=== PATIENT | male | born 2000 | race African-American/Black ===

== ENCOUNTER 2024-11-25 17:54 | Emergency (ER) | payer SELFPAY ==
--- NOTE | ~2024-11-25 | CT_ITS ---
EXAMINATION: CT brain wo con DATE: 11/25/2024 18:55 INDICATION: head injury . TECHNIQUE: Computed tomography (CT) of the head was performed without intravenous contrast. The mA wa s adjusted according to patient size. Iterative reconstruction technique was employed. The dose-lengt h product was 681.00 mGy-cm. COMPARISON: None. FINDINGS: No acute intracranial hemorrhage or extra-axial fluid collection. No hydrocephalus, mass, or herniation. No acute ischemic infarct. Right parietal scalp hematoma. Unremarkable dural venous sinus attenuation. No acute osseous abnormality. The aerated spaces are clear. IMPRESSION: No acute intracranial process. Reviewed, dictated and finalized at location K.
--- NOTE | ~2024-11-25 | XR_ITS ---
EXAMINATION: XR chest 1V portable Exam Date/Time: 11/25/2024 18:00 CDT HISTORY: chest pain Comparison: None. RESULT: Lines, tubes, and devices: None. Lungs and pleura: Patchy segmental airspace disease in the left lower lung. Minimal streaky bibasila r opacities, likely representing atelectasis. Cardiomediastinal silhouette: Stable. Other: No acute osseous or upper abdominal finding. IMPRESSION: Segmental atelectasis/consolidation in the left lower lung Reviewed, dictated and finalized at location K.
--- NOTE | ~2024-11-25 | CT_ITS ---
EXAMINATION: CT chest abdomen pelvis w con DATE: 11/25/2024 19:02 INDICATION: fall from height . TECHNIQUE: Computed tomography (CT) of the chest, abdomen, and pelvis was performed with 100 mL Omnip aque-350 intravenous contrast. Automated exposure control and iterative reconstruction technique were employed. The dose-length product was 1886.82 mGy-cm. COMPARISON: None FINDINGS: Exam limited by beam hardening from arm down positioning. CHEST: No thoracic aortic injury. No mediastinal hematoma. No pericardial effusion. No acute lung injury. No pleural effusion or pneumothorax. ABDOMEN/PELVIS: No solid organ injury. 9 mm benign Bosniak 2 right renal cyst requiring no follow-up with. No evidence of bowel or mesenteric injury. No free fluid or free air. No retroperitoneal hematoma. Pelvic contents are atraumatic. MUSCULOSKELETAL: No acute fracture. No fracture or traumatic malalignment of the thoracic or lumbar spine. IMPRESSION: No acute process detected in the chest, abdomen, or pelvis. Reviewed, dictated and finalized at location K.
--- NOTE | ~2024-11-25 | CT_ITS ---
EXAMINATION: CT cervical spine wo con DATE: 11/25/2024 18:55 INDICATION: fall from balcony TECHNIQUE: Computed tomography (CT) of the cervical spine was performed without intravenous contrast. Automated exposure control and iterative reconstruction technique were employed. The dose-length pro duct was 420.01 mGy-cm. COMPARISON: None. FINDINGS: Vertebral Body Alignment: Intact. Reversed lordosis centered at C5-6. Craniocervical and atlantoaxial alignment: No significant degenerative change. Alignment intact. Osseous structures/fracture: No evidence of a lytic or blastic process in the visualized spine. No e vidence of acute fracture. Cervical soft tissues: The paraspinal soft tissues planes are maintained. Degenerative changes: No significant degenerative changes. IMPRESSION: No acute fracture or traumatic malalignment in the cervical spine. Reviewed, dictated and finalized at location K.
--- NOTE | 2024-11-25 17:57 | ECG_ITS ---
Test Date: 2024-11-25 18:02:16 Measurements Intervals [place] Rate: 92 P: 55 NM: 200 QRS: 251 QRSD: 93 T: 40 QT: 333 QTc: 413 Interpretive Statements SINUS RHYTHM POSSIBLE LEFT ATRIAL ENLARGEMENT INCOMPLETE RIGHT BUNDLE BRANCH BLOCK DELAYED PRECORDIAL R/S TRANSITION BORDERLINE ECG No previous ECG available for comparison Electronically Signed On 11-25-2024 19:41:50 CDT by Soy Hu D.O.
[2024-11-25 17:59] VITALS: BP 131/73; PULSE 92; RESP 18; TEMP 36.9; O2SAT 98
[2024-11-25 18:13] LABS: Basophils Percent Auto 0.6 % (0.2-1.2); Eosinophils Absolute Auto 0.2 K/mm3 (0-0.3); Eosinophils Percent Auto 5.9 % (0-4.4); Hematocrit 46.7 % (42.0-52.0); Immature Granulocyte Absolute 0.02 K/mm3 (0.00-0.031); Immature Granulocyte Percent A 0.6 % (0-0.5); Immature Platelet Fraction Pct 5.4 % (0.9-11.2); Lymphocytes Absolute Auto 1.42 K/mm3 (0.9-3.2); Lymphocytes Percent Auto 39.9 % (18.3-44.2); Mean Corpuscular HGB Conc 32.1 g/dl (32-36); Mean Corpuscular Hemoglobin 27.7 pg (26-34); Mean Corpuscular Volume 86.2 fl (80-100); Mean Platelet Volume 11.3 fl (7.4-10.4); Monocytes Absolute Auto 0.3 K/mm3 (0.1-0.6); Monocytes Percent Auto 9.3 % (2.6-8.5); Neutrophils Absolute Auto 1.6 K/mm3 (1.3-6.7); Neutrophils Percent Auto 43.7 % (45.5-73.1); Platelet Count Result 188 k/mm3 (150-375); Red Blood Count 5.42 M/mm3 (4.6-6.20); Red Cell Distribution Width 12.4 % (11.5-14.5); White Blood Count 3.6 K/mm3 (4.5-10.0)
--- NOTE | 2024-11-25 18:15 | ED_ITS ---
HPI - Head Injury General Chief complaint: Head Injury Stated complaint: fall - 8-10 feet, hit head Time Seen by Provider: 11/25/24 17:59 Source: patient Mode of arrival: EMS Limitations: no limitations History of Present Illness HPI Narrative: This is a 24-year-old male that presents to the emergency department after a fall. Reports he was trying to climb into his mother's balcony window. He fell about 8-10 feet backwards onto the ground. Hit his head. Does not believe he lost consciousness. Reports headache, neck pain, back pain, chest pain, denies vision changes, vomiting, focal numbness or weakness. Related Data Allergies Allergy/AdvReac Type Severity Reaction Status Date / Time No Known Allergies Allergy Verified 11/25/24 17:57 Review of Systems 2 Review of Systems: CONSTITUTIONAL: Denies fever EYES: Denies visual changes CARDIOVASCULAR: Reports chest pain RESPIRATORY: Denies dyspnea. GASTROINTESTINAL: Denies abdominal pain, nausea, vomiting MUSCULOSKELETAL: Reports back pain, joint pain, and myalgia. NEUROLOGIC: Reports headache. Denies numbness, or weakness. All systems reviewed & are unremarkable except as noted in HPI and below PMFSH Past Medical History Medical History (Updated 11/25/24 @ 21:17 by Darcie Monroe PA-C) No active medical problems Exam 2 Narrative: GENERAL: Well-appearing, well-nourished, and in no acute distress. HEAD: Normocephalic. Posterior scalp hematoma EYES: PERRLA and EOMI. ENT: Nares clear, no rhinorrhea or epistaxis. Mucous membranes moist. Oropharynx without tonsillar hypertrophy exudate or other lesions. Bilateral TMs pearly nobles non-bulging NECK: Supple. No adenopathy or masses. C collar in place CHEST: Clear to auscultation. No respiratory distress. No wheezes rales or rhonchi HEART: Regular rate and rhythm. No murmur heard. Normal peripheral pulses. ABDOMEN: Soft, nontender, nondistended, normal active bowel sounds. EXTREMITIES: Normal range of motion. No edema or obvious deformity. Strength equal in bilateral upper and lower extremities (5/5) SKIN: Warm, dry, no rash. NEURO: No focal deficits. Alert and oriented x3. CN II-XII grossly intact PSYCH: Normal mood and affect Course Course Emergency Course: patient updated on his workup and agrees with plan of care Vital Signs Vital signs: Vital Signs Temperature 98.5 F 11/25/24 17:59 Pulse Rate 92 11/25/24 17:59 Respiratory Rate 18 11/25/24 17:59 Blood Pressure 131/73 11/25/24 17:59 Pulse Oximetry 98 11/25/24 17:59 Oxygen Delivery Room Air 11/25/24 17:59 Temperature 98.5 F 11/25/24 17:59 Pulse Rate 92 11/25/24 17:59 Respiratory Rate 18 11/25/24 17:59 Blood Pressure 131/73 11/25/24 17:59 Pulse Oximetry 98 11/25/24 17:59 Oxygen Delivery Room Air 11/25/24 17:59 MDM - Head Injury MDM Narrative Medical decision making narrative: Patient presents to the ER for a fall from about 8-10 feet with head injury. He is neurologically intact. His vitals are stable. CT brain, cervical spine, chest, abdomen, pelvis without acute post traumatic findings. Patient was updated on his workup and agrees with plan of care. He is to follow up with PCP. He was given warnings to return to the ER Differential Diagnosis Differential diagnosis: Likely concussion without loss of consciousness, closed head injury, subdural hematoma and other (spine fracture, contusion, muscle strain) Lab Data Attestation: I reviewed the patient's lab results. 11/25/24 18:05 11/25/24 18:06 Labs: Lab Results 11/25/24 11/25/24 Range/Units 18:05 18:06 WBC 3.6 L (4.5-10.0) K/mm3 RBC 5.42 (4.6-6.20) M/mm3 Hgb 15.0 (14.0-18.0) g/dL Hct 46.7 (42.0-52.0) % MCV 86.2 (80-100) fl MCH 27.7 (26-34) pg MCHC 32.1 (32-36) g/dl RDW 12.4 (11.5-14.5) % Plt Count 188 (150-375) k/mm3 MPV 11.3 H (7.4-10.4) fl Immature Gran % (Auto) 0.6 H (0-0.5) % Neut % (Auto) 43.7 L (45.5-73.1) % Lymph % (Auto) 39.9 (18.3-44.2) % Cass % (Auto) 9.3 H (2.6-8.5) % Eos % (Auto) 5.9 H (0-4.4) % Baso % (Auto) 0.6 (0.2-1.2) % Lymph # (Auto) 1.42 (0.9-3.2) K/mm3 Cass # (Auto) 0.3 (0.1-0.6) K/mm3 Eos # (Auto) 0.2 (0-0.3) K/mm3 Baso # (Auto) 0.0 (0.0-0.1) K/mm3 Abs Immat Gran (auto) 0.02 (0.00-0.031) K/mm3 Absolute Neuts (auto) 1.6 (1.3-6.7) K/mm3 Absolute Nucleated RBC 0.000 (0.0-0.012) K/mm3 Band Neutrophils % Not Reportable Nucleated RBC % 0.0 (0.0-0.2) % Platelet Estimate Adequate (Adequate) % Immature Plt Fraction 5.4 (0.9-11.2) % Schistocytes None seen PT 13.1 (11.1-14.7) Seconds INR 1.0 APTT 20.1 L (22.3-36.8) Seconds Sodium 142 (137-145) mmol/L Potassium 4.5 (3.4-5.0) mmol/L Chloride 106 (98-107) mmol/L Carbon Dioxide 24 (22-30) mmol/L Anion Gap 12 (4-12) mmol/L BUN 16 (9-20) mg/dL Creatinine 0.94 (0.7-1.3) mg/dL Estim Creat Clear Calc 138 ml/min Estimated GFR > 60 (59 - ) Glucose 95 (65-110) mg/dL Calcium 9.1 (8.4-10.2) mg/dL Total Bilirubin 0.5 (0.2-1.3) mg/dL AST 28 (17-59) U/L ALT 27 (6-50) U/L Alkaline Phosphatase 51 (38-126) U/L Troponin I < 0.012 (0.000-0.034) ng/mL Total Protein 8.0 (6.3-8.2) g/dL Albumin 4.7 (3.5-5.1) g/dL Lipase 61 (23-300) U/L Imaging Data Radiologist's impression: ITS Impressions Chest X-Ray 11/25/24 18:39 IMPRESSION: Segmental atelectasis/consolidation in the left lower lung Head CT 11/25/24 19:01 IMPRESSION: No acute intracranial process. Cervical Spine CT 11/25/24 19:02 IMPRESSION: No acute fracture or traumatic malalignment in the cervical spine. Chest/Abdomen/Pelvis CT 11/25/24 19:08 IMPRESSION: No acute process detected in the chest, abdomen, or pelvis. ECG Data EKG #1: ECG completion date: 11/25/24 EKG Interpretation: normal rate, sinus rhythm, no ST changes and normal QT Critical Care Time Critical Care Time Critical Care Time: No Discharge Plan Discharge Clinical Impression: Fall from height of greater than 3 feet Closed head injury Qualifiers: Encounter type: initial encounter Qualified Code(s): S09.90XA - Unspecified injury of head, initial encounter Patient Disposition: Home Condition: Stable Instructions: Head Injury (ED) Additional Instructions: Return to the emergency department if you experience fever, chest pain, shortness of breath, abdominal pain with nausea and vomiting, weakness, numbness, or any other symptoms that are concerning to you. Rest. Remain well hydrated. Tylenol or ibuprofen as needed for pain Follow up with primary care doctor Patient Language: Vietnamese Follow-up/Referrals: UNKNOWN,DOCTOR [Primary Care Provider] -
[2024-11-25 18:23] LABS: Alanine Aminotransferase 27 U/L (6-50); Albumin Level 4.7 g/dL (3.5-5.1); Alkaline Phosphatase 51 U/L (38-126); Anion Gap 12 mmol/L (4-12); Aspartate Amino Transferase 28 U/L (17-59); Bilirubin,Total 0.5 mg/dL (0.2-1.3); Blood Urea Nitrogen 16 mg/dL (9-20); Calcium 9.1 mg/dL (8.4-10.2); Carbon Dioxide 24 mmol/L (22-30); Chloride 106 mmol/L (98-107); Estimated CRCL calculation 138 ml/min; Estimated Glomerular Filt Rate > 60; Glucose 95 mg/dL (65-110); Lipase 61 U/L (23-300); Potassium 4.5 mmol/L (3.4-5.0); Sodium 142 mmol/L (137-145)
[2024-11-25 18:25] LABS: Platelet Estimate Adequate (Adequate); Schistocytes None Seen
[2024-11-25 18:27] LABS: Partial Thromboplastin Time 20.1 Seconds (22.3-36.8); Prothrombin Time 13.1 Seconds (11.1-14.7)
[2024-11-25 18:33] LABS: Troponin I < 0.012 ng/mL (0.000-0.034)
--- OUTSIDE RECORDS SUMMARY | 2024-11-25 18:43 | XMS_ITS | Clinical Summary ---
Author Organization [facility] Address [address] [place] [address] Care Team Providers Care Cardiac Cath Lab Radiology Technologist Name Role Phone Seema Goodson MD Primary Care Provider [phone] Allergies No known active allergies Medications pantoprazole DR (PROTONIX) 40 mg EC tablet TAKE ONE TABLET BY MOUTH EVERY DAY 30 tablet 3 12/26/2023 Active Biktarvy 50-200-25 mg tablet TAKE ONE TABLET BY MOUTH EVERY DAY 30 tablet 3 03/30/2024 Active Active Problems Problem Noted Date Diagnosed Date Other fatigue 07/18/2023 Overview (10/23/2023): Fatigue seems to be related to work 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 Discussed sleep hygiene 2. Advised of benefit of exercise 3. Advised to limit caffeine in the evening 4. Discussed effects of energy drinks on sleep 5. Provided note excusing him from work to allow rest 6, Will monitor Assessment & Plan (07/18/2023 3:43 PM KITCHEN UTILITY ASSOCIATE): Suspect fatigue is job related Advised to eat well and get more rest Will check TSH Will reassess at next visit RUQ pain 11/04/2022 Overview (11/04/2022): Reports RUQ pain which radiates to back Started 2 days ago Reports alcohol use over the weekend Reports diarrhea No history of pancreatitis or gallbladder disease Assessment & Plan (11/04/2022 4:56 PM CDT): 1. Will check CBC, CMP, lipase and amylase 2. Advised hydration and rest. Advised bland diet and to avoid alcohol 3. Provided day off of work 4. Plan to image RUQ if symptoms do not resolve High risk medication use 11/04/2022 Skin lesion 11/04/2022 Overview (11/04/2022): Skin lesion to hand (photo in PE) Scattered hyperpigmented (healed) lesions Advised good HIV control Assessment & Plan (11/04/2022 4:54 PM CDT): 1. 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 He was seen by senior site manager during his hospitalization. Reggie esophagitis 01/06/2022 Overview (06/20/2022): Erosive reggie esophagitis and gastritis diagnosed via EDG in 01/2022 Started on high dose Diflucan and discharged on 400 mg of Diflucan Symptoms improved No thrush noted on PE (posterior pharynx) in January 2022 and none today Completed course of treatment Denies symptoms of esophagitis Remains on Omeprazole for GERD Assessment & Plan (06/20/2022 6:33 PM KITCHEN UTILITY ASSOCIATE): 1. Advised to continue ART 2. Continue Omeprazole for GERD 3. Will plan to treat with Diflucan with recurrence of thrush Assessment & Plan (02/05/2022 11:47 AM CDT): 1. Will discontinue Diflucan today Assessment & Plan (01/12/2022 2:13 PM CDT): 1. Advised adherence to Biktarvy 2. Advised completion of 14 day course of Diflucan, but advised to drop dose to 200 mg per day 3. Will reassess at next visit Assessment & Plan (01/11/2022 10:36 AM CDT): Continue current medications Neutropenia 01/05/2022 Thrombocytopenia 01/05/2022 Esophageal obstruction due to food impaction Esophageal dysphagia 01/04/2022 Overview (01/05/2022): Added automatically from request for surgery [id number] AIDS (acquired immune deficiency syndrome) Overview (10/23/2023): Diagnosed on 01/06/22 Previous (-) HIV screening in 2017 per patient report CD4 <35 with viral load of 386, 000 Genotype in 01/2022 with no mutations. Integrase genotype not obtained Started on Biktarvy on 01/10/22 Diagnosed with reggie esophagitis G6PD wnl CMV IgG (+) Toxo IgG (UTO in 01/2022) HAV AB (-) 01/2022 HBV AB (+) 01/2022 HBV AG (-) 01/2022 HCV AB (-) 01/2023 Tspot (-) 10/2022 Patient was admitted ti [facility] after arriving to ED with complaints of difficulty swallowing and food getting caught in throat. EDG showed erosive reggie esphagitis and gastritis. He was tested for HIV and found to be (+). He was discharged on Biktravy, but was not able to start until 01/10/22 after mother enrolled him in [employer] one month free program. Later case management services were aligned. He was homeless. The patient was discharged on Bactrim (PJP prophylaxis), Azithromycin (MAC prophylaxis), Diflucan (Reggie), Omperazole (gastritis) and Zofran (nasuea). His labs at diagnosis noted a CD4 35 (4%) with a viral load of 386, 000 and 481, 000. He arrived in early January 2022 to establish HIV care. Today, he reports 100% adherence and adverse effects to Biktarvy. Feeling improved. Has gained weight and no symptoms of esophagitis. Labs from late January 2022 noted a viral load of 414. Labs from June 2022 noted a CD4 of 143 (18%) with a viral load of 22 copies. Labs from October 2022 noted CD4 of 269 (22%) with a viral load of less than 20 copies. The patient's most recent labs from July 2023 noted a CD4 of 445 (31%) with a viral load of less than 20 copies. Assessment & Plan (10/23/2023 6:12 PM CDT): 1. Continue Biktarvy 2. Advised 100% adherence 3. Checked labs to assess for effectiveness and toxicity. Annual labs checked 4. Reminded of undetectable = untransmittable 5. Reminded that condoms are effective barrier against STDS. Screening done Assessment & Plan (07/18/2023 3:45 PM KITCHEN UTILITY ASSOCIATE): 1. Continue Biktarvy 2. Advised 100% adherence 3. Checked labs to assess for effectiveness and toxicity 4. Reminded of undetectable = untransmittable 5. Reminded that condoms are effective barrier against STDS Assessment & Plan (11/04/2022 4:48 PM CDT): 1. Continue Biktarvy 2. Advised 100% adherence 3. Checked labs to assess for effectiveness and toxicity 4. Discussed undetectable = untransmittable 5. Reminded that condoms are effective barrier against STDS 6. Continue Bactrim DS for PJP prophylaxis Assessment & Plan (06/20/2022 6:43 PM KITCHEN UTILITY ASSOCIATE): 1. Continue Biktarvy 2. Advised 100% adherence 3. Checked labs to assess for effectiveness and toxicity 4. Discussed undetectable = untransmittable 5. Reminded that condoms are effective barrier against STDS 6. Continue Bactrim for PJP prophylaxis 7. Discussed Monkeypox (illness, diagnosis, treatment and prevention) Assessment & Plan (02/05/2022 11:52 AM CDT): 1. Continue Biktarvy 2. Advised 100% adherence 3. Checked labs to assess for effectiveness and toxicity. Also checked CMV IgG, Toxo IgG, HAV AB, and HBV AB 4. Discussed undetectable = untransmittable 5. Reminded that condoms are effective barrier against STDS 6. Continue Bactrim DS for PJP (PCP) prophylaxis Assessment & Plan (01/12/2022 1:51 PM CDT): 1. Continue Biktarvy 2. Advised 100% adherence. Advised to take Zofran prior to dose of Biktarvy if nausea continues 3. Plan to check labs in 3 weeks to assess for effectiveness and toxicity 4. Discussed undetectable = untransmittable 5. Reminded that condoms are effective barrier against STDS 6. Discussed natural progression of HIV infection (with and without treatment), CD4, VL, importance of adherence, OI prophylaxis, and life expectancy with treatment. 7. Advised to continue Bactrim DS for PJP prophylaxis. Advised that this medication can later be stopped once CD4 improves 8. Advised to stop Azithromycin for MAC prophylaxis 9. Plan to check Tspot, HAV AB, HBV AB, Toxo IgG, and screen for GC/CT at next visit. Assessment & Plan (01/11/2022 10:36 AM CDT): Patient with new diagnosis of HIV and AIDS. He has follow-up with HIV specialist tomorrow. Patient was advised to take his medications as directed. We discussed the importance of compliance with medications and follow-up. Patient said that he does not have sexual partners. Advised to inform his future sexual partners of his diagnosis. Acute gastritis without hemorrhage Overview (07/18/2023): Gastritis diagnosed on EDG in 01/2022 Erosive candidasis History of alcohol use Currently on Omeprazole, but intermittent use Significant weight loss in last year, but improvement with ART (220 -> 158->165->205->221->236) No esophagitis or gastritis Assessment & Plan (07/18/2023 4:06 PM KITCHEN UTILITY ASSOCIATE): 1. Asymptomatic 2. Reminded foods/beverages/behaviors which worsen symptoms 3. Provided Pantoprazole refill 4. Will monitor for symptoms and weight changes Assessment & Plan (11/04/2022 4:52 PM CDT): 1. Asymptomatic 2. Reminded foods/beverages/behaviors which worsen symptoms 3. Reminded of use of PPI. Advised to restart if symptoms return 4. Will monitor for symptoms and weight changes Assessment & Plan (02/05/2022 11:54 AM CDT): 1. Asymptomatic 2. Discussed foods/beverages/behaviors which worsen symptoms 3. Continue Omeprazole for now 4. Will monitor for symptoms and weight changes Assessment & Plan (01/12/2022 2:10 PM CDT): 1. Symptomatic, but improving 2. Discussed foods/beverages/behaviors which worsen symptoms 3. Provided refill on Omeprazole 4. Will monitor for symptoms and weight changes HIV positive Odynophagia Abnormal weight loss Assessment & Plan (01/11/2022 10:38 AM CDT): Weight loss secondary to esophagitis. Patient was advised to increase his oral intake. His dysphagia and odynophagia should improve once the Reggie esophagitis is treated Resolved Problems Problem Noted Date Diagnosed Date Resolved Date Surgical aftercare, musculoskeletal system 05/11/2019 01/05/2022 Acute pain of right knee 04/12/2019 Immunizations Immunization Administration Dates Next Due DTP 09/02/1999, 9,1998,06/27 DTaP 04/23/2003, 0,1998,09/10,1998 HPV, Quadrivalent 10/29/2013,07/25/2013 HPV9 04/10/2015 Hep B, Adolescent or Pediatric 02/25/1999,1998,1998 HiB 09/02/1999, 9,1998,06/27 Hib (PRP-T) 09/02/1999, 9,1998,06/27 IPV 04/23/2003, 9,1998,06/27 Influenza LAIV (Nasal) 05/07/2015,07/09/2013 Influenza, Quadrivalent, Spl it, Preservative Free, Intramuscular 07/11/2023 MMR 04/23/2003,05/12/1999 Meningococcal MCV4P (Menactra) 04/10/2015,2008 OPV 05/12/1999,1998,1998 PPD TEST 03/15/2012 Pneumococcal Conjugate 7-Valent 07/08/2001,04/20 Tdap 04/26/2009 Varicella 07/25/2013,11/11/1999 Surgical History Surgery Date Site/Laterality Comments KNEE SURGERY Right Meniscus tear Medical History Medical History Date Comments HIV disease (HCC) Family History Medical History Relation Name Comments Diabetes Father Hypertension Mother Diabetes Other Hypertension Other Relation Name Status Comments Father Alive Mother Alive Other Social History Tobacco Use Types Packs/Day Years Used Date Smoking Tobacco: Never Cigarettes Smokeless Tobacco: Former Alcohol Use Standard Drinks/Week Comments Yes 0 (1 standard drink = 0.6 oz pur e alcohol) socially AUDIT-C Answer Date Recorded Q1: How often do you have a drink containing alc ohol? Monthly or less 01/11/2022 Q2: How many drinks containi ng alcohol do you have on a typical day when you are drinking? 1 or 2 01/11/2022 Q3: How often do you have si x or more drinks on one occasion? Never 01/11/2022 PHQ-2 Answer Date Recorded PHQ-2 Total Score (If total score is 3 or more points, staff should administer the PHQ-9) 0 01/11/2022 Personal Safety Answer Date Recorded Getting School Help Needed Not on file 07/18 Sex and Gender Information Value Date Recorded Sex Assigned at Male 01/12/2022 1:42 PM CDT Legal Sex Male 4:23 PM KITCHEN UTILITY ASSOCIATE Gender Identity Male 01/12/2022 1:42 PM CDT Sexual Orientation Straight 01/12/2022 1: 42 PM CDT Occupation Industry Job Start Date Job End Date [employer] Not on file Not on file Not on file Obstetrics History Last Filed Vital Signs Vital Sign Reading Time Taken Comments Blood Pressure 114/78 10/17/2023 2:04 PM CDT Pulse 84 10/17/2023 2:04 PM CDT Temperature 36.6 C (97.8 F) 10/17/2023 2:04 PM CDT Respiratory Rate 16 01/11/2022 10:1 2 AM CDT Oxygen Saturation 97% 10/17/2023 2:04 PM CDT Inhaled Oxygen Concentration - - Weight 113.4 kg (250 lb 1.6 oz) 10/17/2023 2:04 PM CDT Height 182 cm (5' 11.65 ) 10/17/2023 2:04 PM CDT Body Mass Index 34.25 10/17/2023 2:04 PM CDT Plan of Treatment Health Maintenance Due Date Last Done Comments HLA B 5701 Typing 1998 Pneumococcal vaccine <65 (2 of 3 - PPSV23) 09/02/2001 07/08/2001, 04/20/2000 HIV+ Chlamydia and Gonorrhea Screening (Rectal) 2009 HIV+ Chlamydia and Gonorrhea Screening (Throat) 2011 Varicella Vaccines (2 of 2 - 2-dose childhood series) 06/04/2015 07/25/2013, 11/11/1999 Regular Well Visit/Exam 18-64 2016 Hepatitis A Vaccines (1 of 2 - Risk 2-dose series) 2017 Zoster Vaccine (1 of 2) 2017 DTaP/Tdap/Td Vaccine (7 - Td or Tdap) 04/26/2019 04/26/2009, 04/23/2003, 09/02/1999, Additional history exists Depression Screening 01/11/2023 01/11/2022 Hepatitis A Screening 02/02/2023 02/02/2022, 022 Proteinuria screening Urinalysis (UA) 11/03/2023 11/02/2022, 06/14/2022, 02/02/2022, Additional history exists Hepatitis C Screening 07/11/2024 07/11/2023, 022 Hemoglobin A1C 10/16/2024 10/17/2023 Lipid Panel 10/16/2024 10/17/2023 RPR Screening 10/16/2024 10/17/2023, 1211/2022, 11/02/2022, Additional history exists T Spot (quantiferon gold) 10/16/20242023, 11/02/2022, 02/02/2022 HIV + Chlamydia and Gonorrhe a Screening (Urine) 10/17/2024 10/18/2023 Influenza Vaccine (Season Ended) 2025 07/11/2023, 05/07/2015, 07/09/2013 Hepatitis B Vaccines Completed 02/25/1999, 1998, 1998 HPV Vaccines Completed 04/10/2015, 10/07, 07/25/2013 G6PD Completed 01/06/2022 Procedures Procedure Name Priority Date/Time Associated Diagnosis Comments HEMOGLOBIN A1C Routine 10/17/2023 2:59 PM CDT AIDS (acquired immune deficiency syndrome) (HCC) LIPID PANEL Routine 10/17/2023 2:59 PM CDT AIDS (acquired immune deficiency syndrome) (HCC) T-SPOT.TB Routine 10/17/2023 2:59 PM CDT AIDS (acquired immune deficiency syndrome) (HCC) RPR Routine 10/17/2023 2:59 PM CDT AIDS (acquired immune deficiency syndrome) (HCC) HEPATITIS C ANTIBODY Routine 07/11/2023 3:04 PM KITCHEN UTILITY ASSOCIATE AIDS (acquired immune deficiency syndrome) (HCC) High risk medication use URINALYSIS AND REFLEX TO MICROSCOPIC AND CULTURE Routine 11/02/2022 9:30 AM CDT AIDS (acquired immune deficiency syndrome) (HCC) HEPATITIS A ANTIBODY,IGG Routine 02/02/2022 11:34 AM CDT AIDS (acquired immune deficiency syndrome) (HCC) Reggie esophagitis (HCC) G6PD QUALITATIVE WITH REFLEX TO QUANTITATIVE Routine 01/06/2022 2:34 PM CDT from Last 3 Months or Most Recently Relevant to Health Maintenance Results * T-SPOT.TB Blood (10/17/2023 2:59 PM CDT) T-SPOT.TB Negative Comment: Normal Value: Negative A negative test result does not exclude the possibility of exposure to or infection with Mycobacterium tuberculosis (M. tuberculosis). Patients with recent exposure to TB infected individuals exhibiting a negative T-SPOT.TB result should be considered for retesting within 6 weeks or if other relevant clinical symptoms indicate. Results from T-SPOT.TB testing must be used in conjunction with each individual's epidemiological history, current medical status, and results of other diagnostic evaluations. The T-SPOT.TB test is qualitative and results are reported as positive, borderline or negative, given that the test controls perform as expected. In line with the Centers for Disease Control and Prevention's 2010 recommendation to report quantitative measurements alongside the qualitative result, the laboratory provides spot counts for informational purposes only. The T-SPOT.TB test should not be interpreted as a quantitative test. T-SPOT.TB Panel A Spot Count 0 [facility] T-SPOT.TB Panel B Spot Count 0 [facility] T-SPOT.TB Negative Control Passed [facility] T-SPOT.TB Positive Control Passed [facility] Comment: Test Performed at: [facility] [address] [place] [id number] ELLA VEGA,PHD Blood 10/17/2023 2:5 9 PM CDT 10/24/2023 1:13 PM CDT Carleen Valadez EXECUTIVE RELATIONS SPECIALIST LAB MICROBIOLOGY - [facility] Final Result Performing Organization Address City/[facility] Co de Phone Number [facility] [place] [place] [address] * RPR Blood (10/17/2023 2:59 PM CDT) Pathologist [facility] RPR Nonreactive Nonreactive Blood 10/17/2023 2:59 PM CDT 10/17/2023 5:10 PM CDT Carleen Valadez EXECUTIVE RELATIONS SPECIALIST LAB MICROBIOLOGY - GENERAL [facility] Final Result Performing Organization Address City/[facility]/ZIP Co de Phone Number [facility] [place] [address] * Hemoglobin A1c (10/17/2023 2:59 PM CDT) Hgb A1C 5.4 4.0 - 5.6 % Estimated Average Glucose 108 mg/dL [facility] Comment: The ADA recommends reporting an estimated Average Glucose (eAG) with all Hemoglobin A1c results using the equation derived from a study of 507 normal and diabetic adults. Minority populations were underrepresented and children were not included. (Diabetes Care 2020; 43(S1): S66-S76). The eAG is not equivalent to a fasting glucose. Blood 10/17/2023 2:59 PM CDT 10/17/2023 5:09 PM CDT us Carleen Valadez NP LAB BLOOD ORDERABLES Final Resu lt [facility] Department [place] [address] * Lipid panel (10/17/2023 2:59 PM CDT) Cholesterol 187 30 - 199 mg/dL Comment: Interpretive Data Ages < or = 19 years Acceptable: <170 mg/dL Borderline high: 170-199 mg/dL High: >or= 200 mg/dL Ages > or = 20 years Desirable: <200 mg/dL Borderline high: 200-239 mg/dL High: >or= 240 mg/dL Literature References: 1. Expert Panel on Integrated Guidelines for Cardiovascular Health and Risk Reduction in Children and Adolescents. Pediatrics 2011;128:S213 2. NCEP Expert Panel. Circulation 2004;110:227 Current Interpretive Data was last revised on 2018. Triglycerides 48 <=149 mg/dL [facility] Comment: Interpretive Data Ages < or = 9 years Acceptable: <75 mg/dL Borderline high: 75-99 mg/dL High: >or= 100 mg/dL Ages 10 to 20 years Acceptable: <90 mg/dL Borderline high: 90-129 mg/dL High: >or= 130 mg/dL Ages > or = 20 years Desirable: <150 mg/dL Borderline high: 150-199 mg/dL High: 200-499 mg/dL Very high: >or= 499 mg/dL Literature References: 1. Expert Panel on Integrated Guidelines for Cardiovascular Health and Risk Reduction in Children and Adolescents. Pediatrics 2011;128:S213 2. NCEP Expert Panel. Circulation 2004;110:227 Current Interpretive Data was last revised on 2018. HDL 59 >=40 mg/dL [facility] Comment: Interpretive Data Ages < or = 19 years Acceptable: >45 mg/dL Borderline low: 40-45 mg/dL Low: <40 mg/dL Ages > or = 20 years Desirable: >or= 60 mg/dL Low: <40 mg/dL Literature References: 1. Expert Panel on Integrated Guidelines for Cardiovascular Health and Risk Reduction in Children and Adolescents. Pediatrics 2011;128:S213 2. NCEP Expert Panel. Circulation 2004;110:227 Current Interpretive Data was last revised on 2018. LDL, calculated 118 <=129 mg/dL [facility] Comment: Interpretive Data Ages < or = 19 years Acceptable: <110 mg/dL Borderline high: 110-129 mg/dL High: >or= 130 mg/dL Ages > or = 20 years Optimal: <100 mg/dL Near optimal: 100-129 mg/dL Borderline high: 130-159 mg/dL High: >160 mg/dL Literature References: 1. Expert Panel on Integrated Guidelines for Cardiovascular Health and Risk Reduction in Children and Adolescents. Pediatrics 2011;128:S213 2. NCEP Expert Panel. Circulation 2004;110:227 Current Interpretive Data was last revised on 2018. Non-HDL Cholesterol 128 mg/dL [facility] Comment: Interpretive Data Ages < or = 19 years Acceptable: <120 mg/dL Borderline high: 120-144 mg/dL High: >145 mg/dL Ages > or = 20 years When triglycerides are >200 mg/dL, Non-HDL cholesterol is a secondary target of therapy with treatment goals that are 30 mg/dL greater than the LDL cholesterol target. Literature References: 1. Expert Panel on Integrated Guidelines for Cardiovascular Health and Risk Reduction in Children and Adolescents. Pediatrics 2011;128:S213 2. NCEP Expert Panel. Circulation 2004;110:227 Current Interpretive Data was last revised on 2018. Chol/HDL ratio 3 [facility] Blood 10/17/2023 2:59 PM CDT 10/17/2023 5:10 PM CDT us Carleen Valadez EXECUTIVE RELATIONS SPECIALIST LAB BLOOD ORDERABLES Final Resu lt Performing Organization Address City/[facility]/ZIP Co de Phone Number [facility] [place] [address] * Hepatitis C antibody Blood (07/11/2023 3:04 PM KITCHEN UTILITY ASSOCIATE) Pathologist [facility] Hep C Ab Nonreactive Nonreactive [facility] Comment:Antibodies to HCV no t detected. Does NOT exclude the possibility of recent exposure to HCV. Current interpretive data was last revised on 22 Blood 07/11/2023 3:04 PM KITCHEN UTILITY ASSOCIATE 07/11/2023 6:59 PM KITCHEN UTILITY ASSOCIATE us Carleen Valadez NP LAB MICROBIOLOGY - GENERAL [facility] Final Result Performing Organization Address [facility] Co de Phone Number [facility] [place] [address] * Urinalysis reflex to microscopic and culture Urine (11/02/2022 9:30 AM CDT) Pathologist [facility] Color, ur Straw Yellow [facility] Clarity, ur Clear Clear [facility] Specific gravity, ur 1.020 1.003 - 1.030 [facility] pH, urine 7.5 [facility] Protein, ur ql Trace Negative [facility] Glucose, ur ql Negative Negative [facility] Ketones, ur Negative Negative [facility] Bilirubin, ur Negative Negative [facility] Blood, ur Negative Negative [facility] Urobilinogen, ur <2.0 <2.0 mg/dL [facility] Nitrite, ur Negative Negative [facility] Leukocyte esterase, ur Negative Negative [facility] UA reflex comment Reflex conditions for microscopic UA and culture not met. [facility] Urine 11/02/2022 9:30 AM CDT 11/02/2022 12:18 PM CDT Narrative [facility] - 11/02/2022 12:28 PM CDT Urine pH is affected by diet, medications, systemic acid-base disturbances, and renal tubular function. pH may affect urinary stone formation. For example, urine pH below 6.0 may help reduce the tendency for calcium phosphate stones and pH greater than 6.0 may reduce the tendency for uric acid stone formation. Source: [facility] [employer]. Last revised 08-18-2017 Carleen Valadez EXECUTIVE RELATIONS SPECIALIST LAB MICROBIOLOGY - GENERAL [place] Final Result Performing Organization Address [facility] Co de Phone Number [facility] [place] [address] * Hepatitis A antibody, IgG (02/02/2022 11:34 AM CDT) Hep A IgG Nonreactive Nonreactive [facility] Blood 02/02/2022 11:3 4 AM CDT 02/02/2022 4:27 PM CDT Carleen Valadez NP LAB BLOOD ORDERABLES Final Resu lt Performing Organization Address [facility] de Phone Number [facility] Department [place] [address] * G6PD qualitative with reflex to quantitative (01/06/2022 2:34 PM CDT) G6PD Normal Normal [facility] Comment: Interp data: G6PD activity should be interpreted in the context of a patient's hematocrit. Hematocrit < 20% may lead to a falsely deficient result, while hematocrit > 50% may lead to a falsely normal result. Current interpretive data was last revised on 2019. Testing performed by: [facility], [address] [place] [address], [place]., [address] Blood 01/06/2022 2:34 PM CDT 01/06/2022 5:27 PM CDT Parth Mckeon MD LAB BLOOD ORDERABLES Final R esult Performing Organization Address [facility] Co de Phone Number KESHIA [address] [facility] Department [place] [address] from Last 3 Months or Most Recently Relevant to Health Maintenance Insurance [employer] OOS [employer] Advance Directives For more information, please contact: [phone] * Full Code (Latest Code Status on File) Date Activated Date Inactivated Comments 01/05/2022 1:21 PM 01/08/2022 11:35 PM * Full Code Date Activated Date Inactivated Comments 01/05/2022 3:49 AM 01/05/2022 1:21 PM Care Teams Cardiac Cath Lab Radiology Technologist Relationship Specialty Start Date End Date Seema Goodson MD [facility] [address] ESCOBAR [address] [place] [id number] PCP - General Internal Medicine 01/11/22
--- OUTSIDE RECORDS SUMMARY | 2024-11-25 18:44 | XMS_ITS | Referral Summary ---
Author Organization [facility] Address [address] [place] [address] Care Team Providers Care Finishing Area Operator Name Role Phone Seema Goodson MD Primary Care Provider [phone] Allergies No known active allergies Medications pantoprazole DR (PROTONIX) 40 mg EC tablet TAKE ONE TABLET BY MOUTH EVERY DAY 30 tablet 3 12/26/2023 Active Biktarvy 50-200-25 mg tablet TAKE ONE TABLET BY MOUTH EVERY DAY 30 tablet 3 03/30/2024 Active Active Problems Problem Noted Date Diagnosed Date Other fatigue 07/18/2023 Overview (10/23/2023): Fatigue seems to be related to work 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 He was seen by shutdown coordinator during his hospitalization. Reggie esophagitis 01/06/2022 Overview [...] GERD Assessment & Plan (06/20/2022 6:33 PM STEEL RULE DIE MAKER APPRENTICE): 1. Advised to continue ART 2. Continue [...] (01/05/2022): Added automatically from request for surgery [id number] AIDS (acquired immune deficiency syndrome) Overview (10/23/2023): [...] Tspot (-) 10/2022 Patient was admitted ti [facility] after arriving to ED with complaints of difficulty swallowing and food getting caught in throat. EDG showed erosive reggie esphagitis and gastritis. He was tested for HIV and found to be (+). He was discharged on Biktravy, but was not able to start until 01/10/22 after mother enrolled him in [facility] one month free program. Later case management [...] done Assessment & Plan (07/18/2023 3:45 PM STEEL RULE DIE MAKER APPRENTICE): 1. Continue Biktarvy 2. Advised 100% adherence [...] prophylaxis Assessment & Plan (06/20/2022 6:43 PM STEEL RULE DIE MAKER APPRENTICE): 1. Continue Biktarvy 2. Advised 100% adherence [...] gastritis Assessment & Plan (07/18/2023 4:06 PM STEEL RULE DIE MAKER APPRENTICE): 1. Asymptomatic 2. Reminded foods/beverages/behaviors which worsen [...] Conjugate 7-Valent 07/08/2001,04/20 Tdap 04/26/2009 Varicella 07/25/2013,11/11/1999 Social History Tobacco Use Types Packs/Day Years [...] PM CDT Legal Sex Male 4:23 PM STEEL RULE DIE MAKER APPRENTICE Gender Identity Male 01/12/2022 1:42 PM CDT Sexual Orientation Straight 01/12/2022 1: 42 PM CDT Occupation Industry Job Start Date Job End Date [employer] Not on file Not on file Not on file Last Filed Vital Signs Vital Sign Reading [...] 10/17/2023 2:04 PM CDT Plan of Treatment Not on file Procedures Procedure Name Priority Date/Time Associated Diagnosis [...] HEPATITIS C ANTIBODY Routine 07/11/2023 3:04 PM STEEL RULE DIE MAKER APPRENTICE AIDS (acquired immune deficiency syndrome) (HCC) High [...] * T-SPOT.TB Blood (10/17/2023 2:59 PM CDT) [facility] T-SPOT.TB Negative Comment: Normal Value: Negative A [...] test. T-SPOT.TB Panel A Spot Count 0 [facility] T-SPOT.TB Panel B Spot Count 0 [facility] T-SPOT.TB Negative Control Passed [facility] T-SPOT.TB Positive Control Passed [facility] Comment: Test Performed at: [facility] [address] [place] [phone] ELLA VEGA,PHD Blood 10/17/2023 2:59 PM CDT 10/24/2023 1:13 PM CDT Carleen Valadez COLLAR TURNER OPERATOR LAB MICROBIOLOGY - GENERAL ORDE RABLES Final Result Performing Organization Address City/[facility]/ZIP Co de Phone Number [facility] [place] [address] * RPR Blood (10/17/2023 2:59 PM CDT) Pathologist [facility] RPR Nonreactive Nonreactive Blood 10/17/2023 2:59 PM CDT 10/17/2023 5:10 PM CDT Carleen Valadez COLLAR TURNER OPERATOR LAB MICROBIOLOGY - GENERAL ORDE [facility] Final Result Performing Organization Address [facility] Co de Phone Number [facility] [place] [address] * Hemoglobin A1c (10/17/2023 2:59 PM CDT) Hgb A1C 5.4 4.0 - 5.6 % Estimated Average Glucose 108 mg/dL [facility] Comment: The ADA recommends reporting an estimated Average Glucose (eAG) with all Hemoglobin A1c results using the equation derived from a study of 507 normal and diabetic adults. Minority populations were underrepresented and children were not included. (Diabetes Care 2020; 43(S1): S66-S76). The eAG is not equivalent to a fasting glucose. Blood 10/17/2023 2:59 PM CDT 10/17/2023 5:09 PM CDT us Carleen Valadez COLLAR TURNER OPERATOR LAB BLOOD ORDERABLES Final Resu lt [facility] Department [place] [address] * Lipid panel (10/17/2023 2:59 PM CDT) [...] revised on 2018. Triglycerides 48 <=149 mg/dL [facility] Comment: Interpretive Data Ages < or [...] revised on 2018. HDL 59 >=40 mg/dL KESH[facility] Comment: Interpretive Data Ages < or [...] on 2018. LDL, calculated 118 <=129 mg/dL [facility] Comment: Interpretive Data Ages < or [...] revised on 2018. Non-HDL Cholesterol 128 mg/dL [facility] Comment: Interpretive Data Ages < or [...] last revised on 2018. Chol/HDL ratio 3 [facility] Blood 10/17/2023 2:59 PM CDT 10/17/2023 5:10 PM CDT us Carleen Valadez NP LAB BLOOD ORDERABLES Final Resu lt [facility] [place] [address] * Hepatitis C antibody Blood (07/11/2023 3:04 PM STEEL RULE DIE MAKER APPRENTICE) Hep C Ab Nonreactive Nonreactive [facility] Comment:Antibodies to HCV no t detected. Does NOT exclude the possibility of recent exposure to HCV. Current interpretive data was last revised on 22 Blood 07/11/2023 3:04 PM STEEL RULE DIE MAKER APPRENTICE 07/11/2023 6:59 PM STEEL RULE DIE MAKER APPRENTICE us Carleen Valadez NP LAB MICROBIOLOGY - GENERAL SARAH GUADALUPE Final Result [facility] [place] [address] * Urinalysis reflex to microscopic and culture Urine (11/02/2022 9:30 AM CDT) Color, ur Straw Yellow [facility] Clarity, ur Clear Clear [facility] Specific gravity, ur 1.020 1.003 - 1.030 [facility] pH, urine 7.5 [facility] Protein, ur ql Trace Negative [facility] Glucose, ur ql Negative Negative [facility] Ketones, ur Negative Negative [facility] Bilirubin, ur Negative Negative [facility] Blood, ur Negative Negative [facility] Urobilinogen, ur <2.0 <2.0 mg/dL [facility] Nitrite, ur Negative Negative [facility] Leukocyte esterase, ur Negative Negative [facility] UA reflex comment Reflex conditions for microscopic UA and culture not met. [facility] Urine 11/02/2022 9:30 AM CDT 11/02/2022 12:18 PM CDT Narrative [facility] - 11/02/2022 12:28 PM CDT Urine pH is affected by diet, medications, systemic acid-base disturbances, and renal tubular function. pH may affect urinary stone formation. For example, urine pH below 6.0 may help reduce the tendency for calcium phosphate stones and pH greater than 6.0 may reduce the tendency for uric acid stone formation. Source: [place] [facility] [facility]. Last revised 08-18-2017 Carleen Valadez COLLAR TURNER OPERATOR LAB MICROBIOLOGY - GENERAL ORDE DESMONDLES Final Result Performing Organization Address City/[facility]/[place] [address] * Hepatitis A antibody, IgG (02/02/2022 11:34 AM CDT) Hep A IgG Nonreactive Nonreactive [facility] Blood 02/02/2022 11:3 4 AM CDT 02/02/2022 4:27 PM CDT Carleen Valadez COLLAR TURNER OPERATOR LAB BLOOD ORDERABLES Final Resu lt Performing Organization Address [facility] Co de Phone Number [facility] [place] [address] * G6PD qualitative with reflex to quantitative (01/06/2022 2:34 PM CDT) G6PD Normal Normal KESHIA Comment: Interp data: G6PD activity should be interpreted in the context of a patient's hematocrit. Hematocrit < 20% may lead to a falsely deficient result, while hematocrit > 50% may lead to a falsely normal result. Current interpretive data was last revised on 2019. Testing performed by: [facility], [address] [place] [address], [place]., [address] Blood 01/06/2022 2:34 PM CDT 01/06/2022 5:27 PM CDT us Parth Mckeon MD LAB BLOOD ORDERABLES Final R esult Performing Organization Address City/[facility]/ZIP Co de Phone Number KESHIA [address] [facility] Department [place] [address] from Last 3 Months or Most Recently Relevant to Health Maintenance Insurance [employer] OOS Advance Directives For more information, please contact: [phone] * Full Code (Latest Code Status on File) Date Activated Date Inactivated Comments 01/05/2022 1:21 PM 01/08/2022 11:35 PM * Full Code Date Activated Date Inactivated Comments 01/05/2022 3:49 AM 01/05/2022 1:21 PM Care Teams Finishing Area Operator Relationship Specialty Start Date End Date Seema Goodson MD [address] [address] PCP - General Internal Medicine 01/11/22
--- NOTE | 2024-11-25 21:19 | PC.NURSE ---
This RN spoke with pt family member. family will be here to pick pt up.
[2024-11-25 21:21] VITALS: BP 129/79; PULSE 87; RESP 17; TEMP 36.7; O2SAT 100
[2024-11-25 21:23] VITALS: BP 129/79; PULSE 87; RESP 17; TEMP 36.7; O2SAT 100
== END 2024-11-25 21:27 | disposition home or self-care (01) ==
PROVIDERS: Emergency Medicine; Emergency Provider Physician Assistant
DX: S00.03XA Contusion of scalp, initial encounter (principal); I45.10 Unspecified right bundle-branch block; R94.31 Abnormal electrocardiogram [ECG] [EKG]; W13.0XXA Fall from, out of or through balcony, initial encounter
CPT/HCPCS: 36415; 70450; 71045; 71260; 72125; 74177; 80053; 83690; 84484; 85025; 85055; 85610; 85730; 93005; 99284; Q9967